=== PATIENT | female | born 1980 | race Caucasian/White ===

== ENCOUNTER 2019-09-07 03:45 | Emergency (ER) | payer OTHER ==
[~2019-09-07] VITALS: Ht 172.7 cm; Wt 72.7 kg
[2019-09-07] MEDS ORDERED: CEPH500C5 PO (04:12)
[2019-09-07] MEDS ORDERED: SULF1TAB49 PO (04:12)
[2019-09-07] MEDS ORDERED: ACET-3067 PO (04:14)
[2019-09-07 04:26] VITALS: BP 103/52
== END 2019-09-07 04:29 | disposition home or self-care (01) ==
LOC: ER 03:47
DX: L03.011 Cellulitis of right finger (principal); Z87.891 Personal history of nicotine dependence
CPT/HCPCS: 10060; 99283